=== PATIENT | male | born 1940 | race Caucasian/White ===

== ENCOUNTER 2016-09-30 09:25 | Emergency (ER) | payer MEDICARE ==
[~2016-09-30] VITALS: Ht 167.6 cm; Wt 64.9 kg
[2016-09-30] MEDS ORDERED: PLAVIX75 M1 PO (09:34)
== END 2016-09-30 10:04 | disposition home or self-care (01) ==
LOC: ED 09:25
DX: S51.812A Laceration without foreign body of left forearm, initial encounter (principal); F17.200 Nicotine dependence, unspecified, uncomplicated; Z29.12 Encounter for prophylactic antivenin; W23.0XXA Caught, crushed, jammed, or pinched between moving objects, initial encounter; Y93.89 Activity, other specified; Y92.9 Unspecified place or not applicable; Y99.9 Unspecified external cause status

== ENCOUNTER 2018-01-21 11:37 | Emergency (ER) | payer MEDICARE, OTHER ==
[~2018-01-21] VITALS: Ht 167.6 cm; Wt 64.4 kg
[~2018-01-21 11:37] MED LIST: PLAVIX75 M1 PO
== END 2018-01-21 13:32 | disposition home or self-care (01) ==
LOC: ED 11:37
DX: S50.11XA Contusion of right forearm, initial encounter (principal); S80.211A Abrasion, right knee, initial encounter; Z79.899 Other long term (current) drug therapy; W01.0XXA Fall on same level from slipping, tripping and stumbling without subsequent striking against object, initial encounter; Y93.89 Activity, other specified; Y92.89 Other specified places as the place of occurrence of the external cause; Y99.8 Other external cause status

== ENCOUNTER → 2020-07-27 | Outpatient (CLI) | payer OTHER ==
[2020-07-27 08:47] LABS: CREATININE 1.18 mg/dL (0.70-1.30)
== END | disposition home or self-care (01) ==
LOC: LAB 00:13 → CT 08:00
PROVIDERS: Radiology Diagnostic Radiology; ATTEND Urology
DX: K57.30 Diverticulosis of large intestine without perforation or abscess without bleeding (principal); C65.1 Malignant neoplasm of right renal pelvis; T82.330A Leakage of aortic (bifurcation) graft (replacement), initial encounter; N28.1 Cyst of kidney, acquired; K40.90 Unilateral inguinal hernia, without obstruction or gangrene, not specified as recurrent; N28.89 Other specified disorders of kidney and ureter; Z95.828 Presence of other vascular implants and grafts

== ENCOUNTER → 2021-04-04 | Outpatient (CLI) | payer OTHER | END | disposition home or self-care (01) | LOC: CT 00:38 | PROVIDERS: ATTEND Urology | DX: I71.4 Abdominal aortic aneurysm, without rupture (principal); I25.10 Atherosclerotic heart disease of native coronary artery without angina pectoris; N28.1 Cyst of kidney, acquired; I51.7 Cardiomegaly ==

== ENCOUNTER 2021-12-21 08:20 | Emergency (ER) | payer MEDICARE ==
[~2021-12-21] VITALS: Ht 157.4 cm; Wt 62.6 kg
[2021-12-21 09:24] LABS: BASO # 0.1 10*3/uL (0.0-0.1); BASO % 0.7 % (0.0-1.0); EOS % 0.4 % (1.0-4.0); HEMATOCRIT 39.7 % (42.0-52.0); LYMPH # 0.6 10*3/uL (1.3-4.4); MEAN CELL VOLUME 94.3 fl (80.0-94.0); MEAN CORPUSCULAR HGB 32.8 pg (27.0-31.0); MEAN CORPUSCULAR HGB CONC 34.8 g/dl (33.0-37.0); MEAN PLATELET VOLUME 9.7 fl (9.6-12.3); MONO # 0.6 10*3/uL (0.1-1.0); NEUT # 6.8 10*3/uL (2.3-7.9); NEUT % 84.3 % (47.0-73.0); PLATELET COUNT AUTOMATED 180 10*3/uL (130-400); RED BLOOD COUNT 4.21 10*6/uL (4.50-5.90); RED CELL DISTRI WIDTH 13.5 % (0-14.5); WHITE BLOOD COUNT 8.1 10*3/uL (4.8-10.8)
[2021-12-21 09:38] LABS: BUN 24 mg/dl (7-24); CHLORIDE 106 mmol/L (98-107); CREATININE 1.19 mg/dL (0.70-1.30); POTASSIUM 3.9 mmol/L (3.5-5.1); SODIUM 136 mmol/L (136-145)
[2021-12-21] MEDS ORDERED: PREDNISONE50 MG PO ×2 (12:04→14:21)
== END 2021-12-21 12:11 | disposition home or self-care (01) ==
LOC: ED 08:20
PROVIDERS: Internal Medicine
DX: M54.9 Dorsalgia, unspecified (principal); M54.2 Cervicalgia; Z79.899 Other long term (current) drug therapy; F17.200 Nicotine dependence, unspecified, uncomplicated

== ENCOUNTER 2022-01-01 14:26 | Inpatient (IN) | payer MEDICARE ==
[~2022-01-01 14:26] MED LIST changes: +PREDNISONE50 MG PO
[2022-01-01 14:28] VITALS: BP 120/60
[2022-01-01 15:00] LABS: BASO % 0.4 % (0.0-1.0); EOS % 0.2 % (1.0-4.0); HEMATOCRIT 42.2 % (42.0-52.0); LYMPH # 0.6 10*3/uL (1.3-4.4); LYMPH % 6.8 % (27.0-41.0); MEAN CELL VOLUME 97.9 fl (80.0-94.0); MEAN CORPUSCULAR HGB 32.9 pg (27.0-31.0); MEAN CORPUSCULAR HGB CONC 33.6 g/dl (33.0-37.0); MEAN PLATELET VOLUME 9.8 fl (9.6-12.3); MONO # 0.6 10*3/uL (0.1-1.0); MONO % 6.9 % (3.0-9.0); NEUT # 7.6 10*3/uL (2.3-7.9); NEUT % 84.3 % (47.0-73.0); PLATELET COUNT AUTOMATED 153 10*3/uL (130-400); RED BLOOD COUNT 4.31 10*6/uL (4.50-5.90); RED CELL DISTRI WIDTH 14.9 % (0-14.5); WHITE BLOOD COUNT 9.1 10*3/uL (4.8-10.8)
[2022-01-01] MEDS ORDERED: HYDROCODONE-AC1 EAC1 PO (15:01)
[2022-01-01] MEDS ORDERED: LISINOPRIL5 MG PO (15:02)
[2022-01-01] MEDS ORDERED: LIPITOR80 MG PO (15:02)
[2022-01-01] MEDS ORDERED: METOPROLOL SUCC50 M1 PO (15:03)
[2022-01-01] MEDS ORDERED: ASPIRIN81 M1 PO (15:04)
[2022-01-01] MEDS ORDERED: MELATONIN + L-TH3 MG PO (15:04)
[2022-01-01] MEDS ORDERED: VITAMIN C125 MG PO (15:04)
[2022-01-01] MEDS ORDERED: AMLODIPINE BESY10 MG PO (15:05)
[2022-01-01 15:12] LABS: ACT PARTIAL THROMBO TIME 25.1 SECONDS (20.0-32.1); INTERNATIONAL NORM RATIO 1.1 (2.0-3.5)
[2022-01-01 15:25] LABS: CREATININE 1.4 mg/dL (0.70-1.30); POTASSIUM 3.9 mmol/L (3.5-5.1); TOTAL PROTEIN 6.7 gm/dL (6.4-8.2)
[2022-01-01 19:34] LABS: BILIRUBIN Negative (Negative); BLOOD 1+ (Negative); CLARITY Clear (Clear); COLOR Dark Yellow (Yellow); GLUCOSE Negative (Negative); KETONE 1+ (Negative); LEUKO ESTERASE Trace (Negative); NITRITE Negative (Negative)
[2022-01-01 19:40] LABS: BACTERIA 2+
[2022-01-01 19:54] VITALS: BP 136/64
[2022-01-02 05:18] VITALS: BP 131/57
[2022-01-02 06:17] LABS: BASO % 0.3 % (0.0-1.0); EOS % 0.1 % (1.0-4.0); LYMPH # 0.5 10*3/uL (1.3-4.4); LYMPH % 5.9 % (27.0-41.0); MEAN CELL VOLUME 98.9 fl (80.0-94.0); MEAN CORPUSCULAR HGB 32.4 pg (27.0-31.0); MEAN CORPUSCULAR HGB CONC 32.8 g/dl (33.0-37.0); MEAN PLATELET VOLUME 10.1 fl (9.6-12.3); MONO # 0.6 10*3/uL (0.1-1.0); MONO % 6.6 % (3.0-9.0); NEUT # 7.9 10*3/uL (2.3-7.9); NEUT % 85.6 % (47.0-73.0); PLATELET COUNT AUTOMATED 144 10*3/uL (130-400); RED BLOOD COUNT 4.35 10*6/uL (4.50-5.90); RED CELL DISTRI WIDTH 14.9 % (0-14.5); WHITE BLOOD COUNT 9.2 10*3/uL (4.8-10.8)
[2022-01-02 06:39] LABS: BUN 41 mg/dl (7-24); CHLORIDE 108 mmol/L (98-107); POTASSIUM 4.1 mmol/L (3.5-5.1); SODIUM 142 mmol/L (136-145)
[2022-01-02 06:47] LABS: ALKALINE PHOSPHATASE 650 U/L (45-117); CHOLESTEROL 123 mg/dL (<200); FREE T4 1.43 ng/dl (0.76-1.46); LDL CHOLESTEROL 37 mg/dL (9-159); SGOT/AST 255 IU/L (3-35); SGPT/ALT 130 U/L (12-78); TOTAL PROTEIN 6.4 gm/dL (6.4-8.2); TRIGLYCERIDES 218 mg/dl (<150)
[2022-01-02 07:56] LABS: VITAMIN D, 25-HYDROXY 45.6 ng/mL (30-100)
[2022-01-02 08:00] VITALS: BP 109/89
[2022-01-02 12:00] VITALS: BP 112/69
[2022-01-02 16:00] VITALS: BP 131/52
[2022-01-02 20:00] VITALS: BP 144/61
[2022-01-03] VITALS: BP 147/58
[2022-01-03 03:06] LABS: TOTAL PROTEIN, SERUM 6.3 g/dL (6.0-8.5)
[2022-01-03 06:37] LABS: HEMATOCRIT 40.8 % (42.0-52.0); MANUAL DIFF REFLEX YES; MEAN CELL VOLUME 97.4 fl (80.0-94.0); MEAN CORPUSCULAR HGB 32.9 pg (27.0-31.0); MEAN CORPUSCULAR HGB CONC 33.8 g/dl (33.0-37.0); MEAN PLATELET VOLUME 10.3 fl (9.6-12.3); PLATELET COUNT AUTOMATED 142 10*3/uL (130-400); RED BLOOD COUNT 4.19 10*6/uL (4.50-5.90); WHITE BLOOD COUNT 24.1 10*3/uL (4.8-10.8)
[2022-01-03 07:01] LABS: CREATININE 1.73 mg/dL (0.70-1.30); POTASSIUM 3.8 mmol/L (3.5-5.1); TOTAL PROTEIN 6.2 gm/dL (6.4-8.2)
[2022-01-03 07:34] LABS: BURR CELLS FEW; PLATELET SUFFICIENCY NORMAL (NORMAL); POLYCHROMASIA SLIGHT; SCHISTOCYTES FEW; TOTAL CELLS COUNTED 100 #CELLS
[2022-01-03 07:35] LABS: TOXIC GRANULATION SLIGHT
[2022-01-03 08:00] VITALS: BP 126/68
[2022-01-03] MEDS ORDERED: OXYCODONE5 M1 PO ×2 (11:17)
[2022-01-03] MEDS ORDERED: ATIVAN1 MG PO (11:17)
[2022-01-03] MEDS ORDERED: OXYCONTIN10 M1 PO (11:17)
[2022-01-03] MEDS ORDERED: OXYCODONE HCL5 MG PO (13:17)
[2022-01-03 14:08] LABS: ALBUMIN 3.1 g/dL (2.9-4.4); ALPHA-1-GLOBULIN 0.3 g/dL (0.0-0.4); ALPHA-2-GLOBULIN 0.7 g/dL (0.4-1.0); BETA GLOBULIN 0.7 g/dL (0.7-1.3); GAMMA GLOBULIN 1.4 g/dL (0.4-1.8); GLOBULIN, TOTAL 3.2 g/dL (2.2-3.9); M-SPIKE 0.3 g/dL (Not Observed)
[2022-01-04 00:06] LABS: FREE KAPPA LIGHT CHAINS 78.5 mg/L (3.3-19.4); FREE LAMBDA LIGHT CHAINS 46.3 mg/L (5.7-26.3); KAPPA/LAMBDA RATIO 1.7 (0.26-1.65)
== END 2022-01-03 12:58 | disposition hospice, home (50) | DRG 438 ==
LOC: ED 14:26 → 4E 21:17 → EDHOLD 21:17 → 4E 23:09
PROVIDERS: Emergency Medicine; Internal Medicine; ADMIT Internal Medicine; ATTEND Internal Medicine
DX: K85.90 Acute pancreatitis without necrosis or infection, unspecified (principal); G93.41 Metabolic encephalopathy; J96.01 Acute respiratory failure with hypoxia; N17.0 Acute kidney failure with tubular necrosis; E44.0 Moderate protein-calorie malnutrition; E72.20 Disorder of urea cycle metabolism, unspecified; E86.0 Dehydration; R74.01 Elevation of levels of liver transaminase levels; E78.2 Mixed hyperlipidemia; E83.52 Hypercalcemia; R16.0 Hepatomegaly, not elsewhere classified; Z95.5 Presence of coronary angioplasty implant and graft; Z68.25 Body mass index [BMI] 25.0-25.9, adult